=== PATIENT | male | born 1985 ===

== ENCOUNTER 2017-11-21 13:59 | Emergency (ER) | payer OTHER ==
[2017-11-21 14:18] VITALS: BMI 46.8
[2017-11-21 14:21] VITALS: O2SAT 95
[2017-11-21 15:54] LABS: BASO % 0.4 % (0.0-2.0); EOS # 0.1 K/uL (0.0-0.7); EOS % 0.9 % (0.0-4.0); HEMOGLOBIN 14.8 g/dL (12.0-18.0); LYMPH # 0.6 K/uL (1.0-4.3); LYMPH % 9.7 % (20.0-40.0); MEAN CELL VOLUME 90.1 fL (80.0-94.0); MEAN CORPUSCULAR HGB CONC 34.4 g/dL (33.0-37.0); MEAN PLATELET VOLUME 9.2 fL (7.2-11.7); MONO % 14.7 % (0.0-10.0); NEUT # 4.9 K/uL (1.8-7.0); NEUT % 74.3 % (50.0-75.0); PLATELET COUNT 197 K/uL (130-400); RBC 4.76 Mil/uL (4.40-5.90); RED CELL DISTRIBUTION WIDTH 12.9 % (11.5-14.5); WHITE BLOOD COUNT 6.6 K/uL (4.8-10.8)
[2017-11-21] MEDS ORDERED: MethylPREDNISolone 40 mg Vial IVP STA (16:03)
[2017-11-21] MEDS ORDERED: Albuterol-Ipratrop 3 mg / 0.5 (3 ml) UD INH STA ×2 (16:03→16:54)
[2017-11-21] MEDS ORDERED: Sodium Chloride 0.9% 1,000 ML IV ONE (16:04)
[2017-11-21 16:14] LABS: ALB/GLOB RATIO 1.3 (1.0-2.1); ALBUMIN 4.2 g/dL (3.5-5.0); ALT/SGPT 53 U/L (21-72); AST/SGOT 75 U/L (17-59); BLOOD UREA NITROGEN 11 mg/dL (9-20); CALCIUM 8.8 mg/dl (8.6-10.4); GFR NON-AFRICAN AMERICAN > 60
[2017-11-21 16:53] LABS: BANDS 1 % (0-2); EOSINOPHIL 1 % (0-4); LYMPHOCYTE 10 % (20-40); MICROCYTOSIS SLIGHT; MONOCYTE 13 % (0-10); NEUTROPHIL 75 % (50-75); PLATELET ESTIMATE NORMAL (NORMAL); TOTAL CELLS COUNTED 100
[2017-11-21 16:54] LABS: HYPOCHROMIC SLIGHT; LARGE PLATELETS PRESENT
[2017-11-21] MEDS ORDERED: Sodium Chloride 0.9% 1,000 ML ONE (16:56)
[2017-11-21] MEDS ORDERED: Albuterol-Ipratrop 3 mg / 0.5 (3 ml) UD ONE ×2 (16:56→17:12)
[2017-11-21] MEDS ORDERED: Benzoin Compound Tincture (60 ml) ONE (17:02)
--- NOTE | 2017-11-21 17:58 | C.PDOC ---
History Of Present Illness <Cintia Martinez - Last Filed: 11/22/17 18:26> <Tino Ortiz - Last Filed: 11/22/17 22:44> 32-year-old male, whose PMHx includes asthma, presents to the ED for evaluation of fever, cough and shortness of breath. Patient is also c/o heroin withdrawal symptoms and reports diffuse body aches. Patient has been using around 4 bags/ day intravenously and/or intranasally over the last few months. He states he has not used in 4 days. Patient denies suicidal/homicidal ideation. (Cintia Martinez) History Per: Patient History/Exam Limitations: no limitations Onset/Duration Of Symptoms: Days Current Symptoms Are (Timing): Still Present Current Respiratory Medications: See Home Med List <Cintia Martinez - Last Filed: 11/22/17 18:26> <Tino Ortiz - Last Filed: 11/22/17 22:44> Time Seen by Provider: 11/21/17 15:28 Chief Complaint (Nursing): Shortness Of Breath Past Medical History Reviewed: Historical Data, Nursing Documentation, Vital Signs - Medical History PMH: Asthma, Sleep Apnea Surgical History: No Surg Hx Family History: States: Unknown Family Hx - Social History Hx Alcohol Use: No Hx Substance Use: Yes - Immunization History Hx Tetanus Toxoid Vaccination: No Hx Influenza Vaccination: No Hx Pneumococcal Vaccination: No <Cintia Martinez - Last Filed: 11/22/17 18:26> Vital Signs: Last Vital Signs Temp 98.6 F 11/21/17 18:40 Pulse 81 11/21/17 18:40 Resp 18 11/21/17 18:40 BP 119/75 11/21/17 18:40 Pulse Ox 95 11/22/17 18:27 Review Of Systems Constitutional: Positive for: Fever, Other (diffuse body aches ) Respiratory: Positive for: Cough, Shortness of Breath Psych: Positive for: Withdrawal <Cintia Martinez - Last Filed: 11/22/17 18:26> Physical Exam - Physical Exam Appears: Non-toxic, No Acute Distress Skin: Normal Color, Warm, Dry Head: Atraumatic, Normacephalic Eye(s): bilateral: Normal Inspection Oral Mucosa: Moist Neck: Supple Chest: Symmetrical, No Deformity, No Tenderness Cardiovascular: Rhythm Regular, No Murmur, Other (tachycardia ) Respiratory: No Rales, No Rhonchi, Wheezing (bilateral ) Gastrointestinal/Abdominal: Soft, No Tenderness, No Guarding, No Rebound Extremity: Normal ROM, Capillary Refill (less than 2 seconds ), Other (scabbing to bilateral legs and distal miller ) Neurological/Psych: Oriented x3, Normal Speech, Normal Cognition <Cintia Martinez - Last Filed: 11/22/17 18:26> ED Course And Treatment - Laboratory Results Result Diagrams: 11/21/17 15:48 11/21/17 15:48 O2 Sat by Pulse Oximetry: 95 (on RA) Pulse Ox Interpretation: Normal <Cintia Martinez - Last Filed: 11/22/17 18:26> - Laboratory Results Result Diagrams: 11/21/17 15:48 11/21/17 15:48 <Tino Ortiz - Last Filed: 11/22/17 22:44> Medical Decision Making <Cintia Martinez - Last Filed: 11/22/17 18:26> <Tino Ortiz - Last Filed: 11/22/17 22:44> Medical Decision Making: Progress: Bloodwork and CXR ordered and reviewed. Duoneb INH, Zithromax PO, Catapres PO, Solu-Medrol IVP and IV Fluids. On re-exam, patient is resting comfortably, showing no signs of distress and reports improvement in symptoms after receiving two nebulizer treatments. Patient is no longer wheezing, had scattered rhonchi which cleared after coughing. Patient with peak flow of 525. Will discharge home with Zithromax. ( Cintia Martinez) Disposition - Disposition Disposition Time: 18:40 <Cintia Martinez - Last Filed: 11/22/17 18:26> <Tino Ortiz - Last Filed: 11/22/17 22:44> - Disposition Referrals: [facility] [Outside] [facility] at [facility] [Outside] Disposition: HOME/ ROUTINE Condition: IMPROVED Additional Instructions: Please use albuterol inhaler every 2 puffs every 4 hours. Take antibiotics and prednisone as prescribed. Follow up in medical clinic. Return to ER for any worsening symptoms, trouble breathing or any other concern. Keep using peak flow meter to see the best you can do. Prescriptions: Azithromycin [Zithromax] 250 mg PO DAILY #4 tab predniSONE [predniSONE Tab] 40 mg PO DAILY #10 tab Instructions: Asthma, Adult (DC), Acute Bronchitis, Adult (DC), How to Use Your Metered Dose Inhaler (Adults) Forms: General Discharge Instructions, [facility] (Serbian) - Clinical Impression Clinical Impression: Asthma with bronchitis - PA / [employer] / Resident Statement MD/DO has reviewed & agrees with the documentation as recorded. - Scribe Statement The provider has reviewed the documentation as recorded by the Scribe (Katherine Sanchez) <Cintia Martinez - Last Filed: 11/22/17 18:26> <Tino Ortiz - Last Filed: 11/22/17 22:44> - Scribe Statement All medical record entries made by the Scribe were at my direction and personally dictated by me. I have reviewed the chart and agree that the record accurately reflects my personal performance of the history, physical exam, medical decision making, and the department course for this patient. I have also personally directed, reviewed, and agree with the discharge instructions and disposition. (Cintia Martinez) Addendum <Cintia Martinez - Last Filed: 11/22/17 18:26> <Tino Ortiz - Last Filed: 11/22/17 22:44> Addendum: 11/22/17 22:44 received call from microbiology - prelim gram positive cocci . Pt was discharged with zithromax. Will call (Tino Ortiz)
--- NOTE | 2017-11-21 18:08 | C.PDOC ---
Time Seen by Provider: 11/21/17 15:28 Chief Complaint (Nursing): Shortness Of Breath Past Medical History Vital Signs: Last Vital Signs Temp 101 F H 11/21/17 14:24 Pulse 94 H 11/21/17 14:18 Resp 20 11/21/17 14:18 BP 113/75 11/21/17 14:18 Pulse Ox 95 11/21/17 18:00 - Medical History PMH: Asthma, Sleep Apnea Surgical History: No Surg Hx Family History: States: Unknown Family Hx - Social History Hx Alcohol Use: No Hx Substance Use: Yes - Immunization History Hx Tetanus Toxoid Vaccination: No Hx Influenza Vaccination: No Hx Pneumococcal Vaccination: No ED Course And Treatment - Laboratory Results Result Diagrams: 11/21/17 15:48 11/21/17 15:48 O2 Sat by Pulse Oximetry: 95 (on RA) Medical Decision Making Medical Decision Making: pt feelin much better, d/c home. pt has albuterol mdi at home, d/c with prednisone and zithromax Disposition Counseled Patient/Family Regarding: Studies Performed, Diagnosis, Need For Followup, Rx Given - Disposition Referrals: [facility] [Outside] [facility] [Outside] Disposition: HOME/ ROUTINE Disposition Time: 18:03 Condition: IMPROVED Additional Instructions: Please use albuterol inhaler every 2 puffs every 4 hours. Take antibiotics and prednisone as prescribed. Follow up in medical clinic. Return to ER for any worsening symptoms, trouble breathing or any other concern. Keep using peak flow meter to see the best you can do. Prescriptions: Azithromycin [Z-Mayank] 250 mg PO DAILY #6 tab Azithromycin [Zithromax] 250 mg PO DAILY #4 tab predniSONE [predniSONE Tab] 40 mg PO DAILY #10 tab Instructions: Asthma, Adult (DC), Acute Bronchitis, Adult (DC) Forms: [facility] (Qatari), General Discharge Instructions - Clinical Impression Clinical Impression: Asthma with bronchitis
[2017-11-21 18:41] VITALS: BP 119/75; PULSE 81; RESP 18; TEMP 98.6
--- NOTE | 2017-11-22 14:39 | CARD ---
APPROVED REPORT Date of service: 11/21/2017 EKG Measurement Heart [id number] <Conclusion> Normal sinus rhythm Normal ECG
== END 2017-11-21 18:40 | disposition home or self-care (01) ==
LOC: C.ER 13:59
DX: J45.909 Unspecified asthma, uncomplicated (principal)
CPT/HCPCS: 71046; 80053; 85025; 87040; 87149; 87205; 93005; 94640; 96361; 96374; 99285; J2920; J7030